=== PATIENT | male | born 1990 | race Caucasian/White ===

== ENCOUNTER 2016-12-15 16:36 | Emergency (ER) | payer SELFPAY ==
[~2016-12-15] VITALS: Ht 180.3 cm; Wt 77.4 kg
[~2016-12-15 16:36] MED LIST: ALBU1AER9 INH
[2016-12-15 16:50] VITALS: TEMP 36.7; Ht 180.3 cm; Wt 77.4 kg
[2016-12-15] MEDS ORDERED: CEFTRIAXONE SOD 350MG/ML 1 GM VIAL IM STA (17:02)
[2016-12-15] MEDS ORDERED: AZITHROMYCIN 250 MG TAB PO STA (17:02)
--- NOTE | 2016-12-15 17:03 | EMERGENCY ROOM VISIT NOTE ---
History Report prepared by Kimberlyn: Pascual Adame Under the Supervision of: Dr. Emmanuel Westfall D.O. First contact with patient: 16:53 Chief Complaint: PENILE DISCHARGE Stated Complaint: DISCHARGE FROM PENIS History of Present Illness The patient is a 26 year old male who presents to the Emergency Room with complaints of persistent penile discharge that started a few days ago. He says that a few days before the discharge started, he noticed a little irritation on the tip of his penis. 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 He says the irritation has mostly gone away, but the inside of his penis is red now. The patient says he tried Neosporin and keeping it covered, but nothing has worked to prevent the penile discharge and redness inside his penis. The patient denies any burning urination, testicle pain, nausea, vomiting , or pustules/pimples around the penis. He is currently sexually active with one partner. That partner is not having any symptoms. He has no history of sexually transmitted diseases before. He does not take any daily medications. He does not use any tobacco products and he does not drink alcohol. Source of History: patient Onset: A few days ago Position: other (penis) Quality: other (whitish/yellowish discharge) Timing: other (persistent) Associated Symptoms: No nausea, No urinary symptoms (burning urination), No vomiting Note: Associated symptoms: Inside of penis is red, bit of irritation on tip of penis. Denies testicle pain, pustules/pimples around penis. Review of Systems See HPI for pertinent positives & negatives. A total of 10 systems reviewed and were otherwise negative. Past Medical & Surgical Medical Problems: (1) No chronic problems Family History No pertinent family history Social History Smoking Status: Never Smoker Smokeless Tobacco Use: No Alcohol Use: none Marital Status: single Occupation Status: employed Current/Historical Medications Scheduled Clotrimazole Vaginal (Clotrimazole), 1 APPLN EXT BID Allergies Coded Allergies: No Known Allergies (Verified , 12/15/16) Physical Exam Vital Signs Date Time Temp Pulse Resp B/P Pulse Ox O2 Delivery O2 Flow Rate FiO2 12/15/16 16:50 36.7 63 18 115/74 98 Room Air Physical Exam GENERAL: Patient is awake, alert, and in no acute distress. Patient is resting comfortably and showing no signs of anxiety EYES: The conjunctivae are clear. The pupils are round and reactive. EARS, NOSE, MOUTH AND THROAT: The nose is without any evidence of any deformity. Mucous membranes are moist tongue is midline NECK: The neck is nontender and supple. RESPIRATORY: Normal respiratory effort is noted there is no evidence of wheezing rhonchi or rales CARDIOVASCULAR: Regular rate and rhythm noted there no murmurs rubs or gallops normal S1 normal S2 GASTROINTESTINAL: The abdomen is soft. Bowel sounds are present in all quadrants. Abdomen is nontender : No inguinal adenopathy noted. Testicles are descended and non-tender bilaterally. No lesions or ulcerations noted on penis. Thin yellow discharge noted, this was sent for culture. MUSCULOSKELETAL/EXTREMITIES: There is no evidence of gross deformity full range of motion is noted in the hips and shoulders SKIN: There is no obvious evidence of any rash. There are no petechiae, pallor or cyanosis noted. NEUROLOGIC: Patient is awake alert and oriented x3. Medical Decision & Procedures Laboratory Results Test 12/15/16 17:00 Laboratory results per my review. Medications Administered Medications (Trade) Dose Ordered Sig/Jonny Route Start Time Stop Time Status Last Admin Dose Admin Ceftriaxone Sodium (Rocephin Im) 250 mg NOW STAT IM 12/15/16 17:02 12/15/16 17:03 DC 12/15/16 17:20 250 MG Azithromycin (Zithromax Tab) 1,000 mg NOW STAT PO 12/15/16 17:02 12/15/16 17:03 DC 12/15/16 17:19 1,000 MG ED Course 1653: The patient was evaluated in room D9. A complete history and physical examination were performed. 1702: Ordered Zithromax Tab 1000 mg PO, Rocephin Im 250 mg IM. 1710: Upon reevaluation, the patient is resting comfortably. I discussed the results and treatment plan with him. He verbalized agreement of the treatment plan. He was discharged home. Medical Decision Differential diagnosis this patient could include sexually transmitted infection , nongonococcal urethritis, inflammatory arthritis, other sexually-transmitted diseases such as herpes, urinary tract infection, and other differential diagnoses were considered. Nursing notes reviewed. The patient is a 26-year-old male who presented to the emergency department for an evaluation of penile discharge. The patient's history and physical exam appeared to be consistent with urethritis. The patient did not appear to have any lesions or areas which would be consistent with a herpetic infection. He does complain of some irritation at the tip of the penis which seems to improved without any intervention. He denies at this was ulcerative in nature or what I described him as a herpetic lesion. The patient was treated with Rocephin and Zithromax in the emergency department. Urethral swab was taken. I discussed follow-up with the patient and encouraged him to avoid any sexual contact until the symptoms were completely resolved and the cultures return. He was also encouraged to try to use some antifungal cream at the tip of the penis in case this represented a fungal type infection like a balanitis. He was also encouraged follow-up with his primary care physician for further evaluation but return to the emergency department immediately if symptoms change worsen or the need arises. Impression Primary Impression: Urethritis Scribe Attestation The scribe's documentation has been prepared under my direction and personally reviewed by me in its entirety. I confirm that the note above accurately reflects all work, treatment, procedures, and medical decision making performed by me. Departure Information Dispostion Home / Self-Care Prescriptions Clotrimazole Vaginal (CLOTRIMAZOLE) 1 % Cre 1 APPLN EXT BID, #30 GM Prov: Emmanuel Westfall, DO 12/15/16 Referrals No Doctor, Assigned (PCP) Forms HOME CARE DOCUMENTATION FORM, IMPORTANT VISIT INFORMATION, WORK / SCHOOL INSTRUCTIONS Patient Instructions My [facility], Urethritis Men Additional Instructions Continue to use the cream as directed twice a day for symptomatically relief. Follow-up with your family doctor soon as possible. Call back to the emergency department in 4-5 days for culture report. Avoid any sexual contact until your completely asymptomatic and the test is negative.
[2016-12-15] MEDS ORDERED: CLOT1CRE12 EXT (17:06)
[2016-12-15 17:32] VITALS: BP 123/76; PULSE 68; O2SAT 98
[2017-07-03] MEDS ORDERED: DOXY-300 PO (17:19)
== END 2016-12-15 17:34 | disposition home or self-care (01) ==
LOC: C.EDB 16:39 → C.EDD 17:34
DX: N34.2 Other urethritis (principal)

== ENCOUNTER 2016-12-27 22:33 | Emergency (ER) | payer SELFPAY ==
[~2016-12-27] VITALS: Ht 180.3 cm; Wt 75.0 kg
[~2016-12-27 22:33] MED LIST changes: -ALBU1AER9 INH; +CLOT1CRE12 EXT
[2016-12-27 22:41] VITALS: TEMP 36.8; Ht 180.3 cm; Wt 75.0 kg
[2016-12-27] MEDS ORDERED: CLOT1CRE3 TOP (22:54)
--- NOTE | 2016-12-27 23:04 | EMERGENCY ROOM VISIT NOTE ---
History Report prepared by Kimberlyn: Mike Tapia Under the Supervision of: Dr. Casper Sanchez M.D. First contact with patient: 22:46 Chief Complaint: INFECTION Stated Complaint: YEAST INFECTION Nursing Triage Summary: reports yeast infection 2 weeks ago to penis. "it went away and is back. it's not an STD because I haven't done that in a few weeks either.". pt report work place was very warm and AC was out recently. "I was really sweaty". pt reports some discomfort at times. denies burning with urination History of Present Illness The patient is a 26 year old male who presents to the Emergency Room with complaints of a recurrent yeast infection on his penis. The patient was in the ED two weeks ago with redness and swelling of the penis. He also had penile discharge. He was discharged with antibiotics and anti-fungal cream. The patient 's symptoms initially resolved and were not present for one week. Two days ago the redness and swelling returned. He continued using the anti-fungal cream. He is not having any new penile discharge. He has also noticed a "warm" sensation when he urinates but denies burning. He denies back or abdominal pain. He denies testicular involvement. The patient is circumcised. He denies penile trauma. He is sexually active and his partner is asymptomatic. The patient denies any history of STDs. The patient wears boxer briefs. He works as a cook. He denies any other medical problems. Source of History: patient Onset: two days Position: other (penis) Quality: other (yeast infection) Timing: other (recurrent) Associated Symptoms: + urinary symptoms, No abdominal pain, No back pain Review of Systems See HPI for pertinent positives & negatives. A total of 10 systems reviewed and were otherwise negative. Past Medical & Surgical Medical Problems: (1) No chronic problems Old medical records were reviewed. Nurse's notes were reviewed and I agree with. Family History No pertinent family history Social History Smoking Status: Never Smoker Alcohol Use: none Marital Status: single Occupation Status: employed Current/Historical Medications Scheduled PRN Clotrimazole Vaginal (Clotrimazole), 1 APPLN TOP BID PRN for Yeast Infection Allergies Coded Allergies: No Known Allergies (Verified , 12/15/16) Physical Exam Vital Signs Date Time Temp Pulse Resp B/P Pulse Ox O2 Delivery O2 Flow Rate FiO2 12/27/16 23:53 76 18 114/70 100 Room Air 12/27/16 22:41 36.8 73 18 117/71 99 Room Air Physical Exam General: Non ill appearing young male in no acute distress, breathing comfortably on room air. Normal speech HEENT: Normal cephalic atraumatic. Pupils are equal round and reactive to light. Extraocular movements are intact. Oropharynx is pink with moist mucous membranes. No swelling of the mouth lips or tongue. Neck: Supple with a midline trachea. No meningeal signs or stiffness, no JVD or bruits. No Stridor. Chest: Clear to auscultation bilaterally. No wheezes or rhonchi. No increased work of breathing. Heart: regular rate and rhythm. Abdomen: Soft nontender, nondistended without rebound guarding or rigidity. Extremities: No cyanosis clubbing or edema. No calf tenderness or assymetry Spine/Back. Non tender to palpation. No CVA tenderness Skin: Good turgor without rashes. Neurologic exam: Cranial nerves two through 12 are intact. Motor and sensation are intact and symmetrical throughout. Genitourinary: No lymphadenopathy. Normal testicular exam. No penile discharge. Small red areas near the tip of the penis likely consistent with yeast, no defined legions or pustules. Medical Decision & Procedures Medications Administered Medications (Trade) Dose Ordered Sig/Jonny Route Start Time Stop Time Status Last Admin Dose Admin Azithromycin (Zithromax Tab) 1,000 mg NOW ONCE PO 12/27/16 23:45 12/27/16 23:46 DC 12/27/16 23:53 1,000 MG Ceftriaxone Sodium (Rocephin Im) 250 mg NOW STAT IM 12/27/16 23:32 12/27/16 23:36 DC 12/27/16 23:53 250 MG ED Course 2252: Past medical records reviewed. The patient was evaluated in room B6, and a complete history and physical examination were performed. 2315: Penile swab performed. 2330: Reassessed the patient. Discussed the findings with him. He verbalized understanding and agreement. The patient is ready for discharge. 2332: Rocephin 250 mg IM. 2345: Zithromax 1000 mg PO. Medical Decision Differential diagnosis includes balanitis, urethritis, trauma, cellulitis. This patient comes in as described above. He has pain on his penis. He has some small red areas. He may have some pain with urination as well. He is treated several weeks ago for urethritis. I have reviewed his workup and his GC and chlamydia probes had failed and all were unable be reported light elicited repeated. He has asked for another dose of antibiotics. I did give him additional IV Rocephin and azithromycin. He is continue the antifungal cream. At this point I do not see any penile discharge, he does have some small red areas which is most likely yeast. He has no discrete lesions or pustules to suggest herpetic lesion. I recommended follow-up with his regular doctor return if any new problems or concerns. Impression Primary Impression: Urethritis Additional Impression: Balanitis Scribe Attestation The scribe's documentation has been prepared under my direction and personally reviewed by me in its entirety. I confirm that the note above accurately reflects all work, treatment, procedures, and medical decision making performed by me. Departure Information Dispostion Home / Self-Care Referrals No Doctor, Assigned (PCP) Forms HOME CARE DOCUMENTATION FORM, IMPORTANT VISIT INFORMATION, WORK / SCHOOL INSTRUCTIONS Patient Instructions My [facility] Additional Instructions Rest. Continue to use your clotrimazole cream twice a day Return if: Worsening of symptoms, fever or chills, any new problems or concerns. Follow-up with your doctor this week for recheck. Problem Qualifiers
[2016-12-27] MEDS ORDERED: CEFTRIAXONE SOD 350MG/ML 1 GM VIAL IM STA (23:32)
[2016-12-27] MEDS ORDERED: AZITHROMYCIN 250 MG TAB PO ONE (23:45)
[2016-12-27 23:53] VITALS: BP 114/70; PULSE 76; O2SAT 100
[2017-07-03] MEDS ORDERED: DOXY-300 PO (17:19)
== END 2016-12-27 23:55 | disposition home or self-care (01) ==
LOC: C.EDB 22:34
DX: N34.2 Other urethritis (principal); N48.1 Balanitis

== ENCOUNTER 2017-06-30 22:03 | Emergency (ER) | payer SELFPAY ==
[~2017-06-30] VITALS: Ht 180.3 cm; Wt 76.1 kg
[~2017-06-30 22:03] MED LIST changes: -CLOT1CRE12 EXT; +CLOT1CRE3 TOP
[2017-06-30 22:09] VITALS: TEMP 37.2; Ht 180.3 cm; Wt 76.1 kg
[2017-06-30] MEDS ORDERED: CEFTRIAXONE SOD 350MG/ML 1 GM VIAL IM STA (22:23)
[2017-06-30] MEDS ORDERED: AZITHROMYCIN 250 MG TAB PO STA (22:23)
[2017-06-30 22:50] LABS: URINE APPEARANCE CLEAR (CLEAR); URINE BILIRUBIN NEG (NEG); URINE COLOR YELLOW; URINE NITRITE NEG (NEG); URINE SPECIFIC GRAVITY 1.023 (1.000-1.030); UROBILINOGEN NEG (NEG); ZZUR CULT IF INDIC CLEAN CATCH NO
[2017-06-30 22:56] LABS: MANUAL MICROSCOPIC REQUIRED? NO; REVIEW REQ? NO
[2017-06-30 23:22] VITALS: BP 112/62; PULSE 69; O2SAT 100
--- NOTE | 2017-07-01 03:41 | EMERGENCY ROOM VISIT NOTE ---
History First contact with patient: 22:12 Chief Complaint: PENIS PAIN Stated Complaint: YEAST INFECTION IN GROIN History of Present Illness The patient is a 27 year old male who presents to the Emergency Room with complaints of penile redness and discomfort for the past few days. Patient has a history of urethritis. Symptoms feel similar. He has not seen urology before. He does not feel at risk for STIs. Patient denies penile discharge, penile rashes, testicular pain, urinary frequency, urgency, dysuria, abdominal pain, fever, chills, chest pain, dyspnea or any other medical complaints. Hes been using his clotrimazole cream with minimal improvement of symptoms. He states he sweats a lot at work. He states the antibiotics from last time seemed to clear everything up. Review of Systems See HPI for pertinent positives & negatives. A total of 10 systems reviewed and were otherwise negative. Past Medical/Surgical History Medical Problems: (1) No chronic problems Family History No pertinent family history Social History Smoking Status: Never Smoker Alcohol Use: none Drug Use: none Marital Status: single Occupation Status: employed Current/Historical Medications Scheduled PRN Clotrimazole Vaginal (Clotrimazole), 1 APPLN TOP BID PRN for Yeast Infection Physical Exam Vital Signs Date Time Temp Pulse Resp B/P (MAP) Pulse Ox O2 Delivery O2 Flow Rate FiO2 06/30/17 23:22 69 18 112/62 100 06/30/17 22:09 37.2 80 18 126/69 99 Room Air Physical Exam VITALS: Vitals are noted on the nurse's note and reviewed by myself. Vital signs stable. GENERAL: Pleasant male, in no acute distress, nondiaphoretic, well-developed well-nourished. SKIN: Capillary reflex less than 2 seconds. HEENT: Normocephalic. PERRLA. EOMI. Nares patent. Mucous membranes moist. Neck is supple without nuchal rigidity. HEART: Regular rate and rhythm without murmurs gallops or rubs. LUNGS: Clear to auscultation bilaterally without wheezes, rales or rhonchi. No retractions or accessory muscle use. ABDOMEN: Positive bowel sounds x 4. Normal tympanic percussion. Soft, nontender, without masses or organomegaly. Juarez sign negative. No guarding or rebound tenderness. exam: Normal male genitalia, no penile rashes or discharge, No testicular pain no penile pain. circumcised, cultures taken and sent. Quality Inspector present. MUSCULOSKELETAL: No gross musculoskeletal defects. No pedal edema. No calf tenderness. NEURO: Patient was alert and oriented to person place and time. Normal sensation to light and sharp touch. No focal neurological deficits. Medical Decision & Procedures Laboratory Results Test 06/30/17 22:20 06/30/17 22:40 Urine Color YELLOW Urine Appearance CLEAR (CLEAR) Urine pH 6.0 (4.5-7.5) Urine Specific [place] 1.023 (1.000-1.030) Urine Protein NEG (NEG) Urine Glucose (UA) NEG (NEG) Urine Ketones NEG (NEG) Urine Occult Blood NEG (NEG) Urine Nitrite NEG (NEG) Urine Bilirubin NEG (NEG) Urine Urobilinogen NEG (NEG) Urine Leukocyte Esterase NEG (NEG) Medications Administered Medications (Trade) Dose Ordered Sig/Jonny Route Start Time Stop Time Status Last Admin Dose Admin Ceftriaxone Sodium (Rocephin Im) 250 mg NOW STAT IM 06/30/17 22:23 06/30/17 22:24 DC 06/30/17 22:37 250 MG Azithromycin (Zithromax Tab) 1,000 mg NOW STAT PO 06/30/17 22:23 06/30/17 22:24 DC 06/30/17 22:37 1,000 MG ED Course Prior records reviewed and summarized as above. Triage Nursing notes reviewed. The patient's history was concerning for penile redness and discomfort. Differential diagnosis: Etiologies such as balanitis, STI, UTI, cellulitis, urethritis as well as others were entertained.. Physical examination: The physical examination was consistent with urethritis ER treatment provided: Rocephin, Zithromax On reassessment the patient felt better. Diagnostics interpreted by me: The labs revealed negative urine, GC chlamydia pending This appears to be isolated urethritis. Patient was advised continue the clotrimazole cream..He was advised to follow-up urology as he this is a recurrent issue for him. He was advised to avoid excessive sweating to the area. He was advised to return to the ER immediately for penile pain, penile discharge, fevers, vomiting, worsening signs or symptoms or as needed. Patient no urinary tract infection. He is well-appearing. Patient states he has plenty of clotrimazole cream. By the evaluation outlined above emergent etiologies such as UTI, as well as others were deemed relatively unlikely. The pt informed about the findings as listed above. All questions were answered and pleased with the treatment. Return instructions were outlined and the patient was discharged in stable condition. Referral: The patient was referred back to urology and primary care physician for follow- up in 2 to 3 days for a recheck of the current condition. Case reviewed with my attending Medical Decision As above Medication Reconcilliation Current Medication List: was personally reviewed by me Blood Pressure Screening Patient's blood pressure: Normal blood pressure Impression Primary Impression: Urethritis Departure Information Dispostion Home / Self-Care Condition GOOD Referrals Gordy Baker MD Forms WORK / SCHOOL INSTRUCTIONS, HOME CARE DOCUMENTATION FORM, IMPORTANT VISIT INFORMATION Patient Instructions My [facility] Additional Instructions Continue clotrimazole cream twice a day to the affected area. Ibuprofen(Motrin, Advil) may be used for fever or pain. Use 600mg every six hours as needed. Take with food. Avoid using more than 2400mg in a 24 hour period. Do not use 2400mg per day for more than three consecutive days without physician direction. Prolonged inappropriate use can lead to stomach upset or ulcers. (AND/OR) Acetaminophen(Tylenol) may be used for fever or pain. Use 1000mg every six hours as needed. Avoid using more than 3000mg in a 24 hour period. Rest and drink plenty of fluids as tolerated. Continue current medications. Avoid strenuous activities and anything that worsens your pain. Resume normal activities once your symptoms resolve. Return to the ER immediately for worsening or persistent penile pain, penile discharge, abdominal pain, vomiting, fevers, chest pains, difficulty breathing, worsening of your condition, or as needed. Follow up with urology in 2-3 days for a recheck of your current condition.
[2017-07-03 02:22] LABS: CHLAMYDIA TRACH RNA*** NOT DETECTED (NOT DETECTED); GC (NEIS GONORRHOEAE)RNA** NOT DETECTED (NOT DETECTED)
[2017-07-03] MEDS ORDERED: DOXY-300 PO (17:19)
== END 2017-06-30 23:19 | disposition home or self-care (01) ==
LOC: C.EDB 22:04
DX: N34.2 Other urethritis (principal); N48.89 Other specified disorders of penis

== ENCOUNTER 2018-01-06 10:25 | Emergency (ER) | payer SELFPAY ==
[~2018-01-06] VITALS: Ht 182.9 cm; Wt 76.9 kg
[~2018-01-06 10:25] MED LIST changes: +DOXY-300 PO
[2018-01-06 10:44] VITALS: TEMP 36.7; Ht 182.9 cm; Wt 76.9 kg
--- NOTE | 2018-01-06 11:05 | EMERGENCY ROOM VISIT NOTE ---
History First contact with patient: 10:48 Chief Complaint: THROAT PAIN/INJURY Stated Complaint: SORE THROAT History of Present Illness The patient is a 27 year old male who presents to the Emergency Room via private vehicle with complaints of "sore throat". The patient states that beginning in the first part of December he started with a tickle in his throat that progressed to a sore throat. It has been intermittent since that time and is favoring the left side. It is worse in the morning. Feels like an ulcer in his throat. He is drinking liquids fine but notes that foods will sometimes feels that they catch on this region. He states that yesterday was the worst sore throat. He notes minimal swelling. He denies any fevers, chills, chest pain or shortness of breath. He rates the overall discomfort as a 7/10. Review of Systems A complete 6-point Review of Systems was discussed with the patient, with pertinent positives and negatives listed in the History of Present Illness. All remaining Review of Systems questions can be considered negative unless otherwise specified. Past Medical/Surgical History Medical Problems: (1) No chronic problems Family History No pertinent family history Social History Smoking Status: Never Smoker Alcohol Use: none Drug Use: none Marital Status: single Occupation Status: employed Current/Historical Medications No Active Prescriptions or Reported Meds Physical Exam Vital Signs Date Time Temp Pulse Resp B/P (MAP) Pulse Ox O2 Delivery O2 Flow Rate FiO2 01/06/18 11:44 80 19 105/73 98 Room Air 01/06/18 10:45 95 Room Air 01/06/18 10:44 36.7 93 18 100/68 95 Room Air Physical Exam VITAL SIGNS - Vital signs and nursing notes were reviewed. Stable. GENERAL -27-year-old male appearing his stated age who is in no acute distress. Communicates well with provider and answers questions appropriately. SKIN - Without rashes. No meningeal or petechial rash. HEAD - NC/AT. EYES - PERRL with EOMI bilaterally. Sclera anicteric. EARS - No deformities of external structures noted on gross examination bilaterally. External auditory canals without discharge or otorrhea. Tympanic membranes pearly tomas without retraction or bulging. No fluid or purulent material visualized behind the TM. Handle of malleus, umbo, cone of light, pars tensa/flaccid all easily visualized. NOSE - Midline and without cyanosis. No epistaxis or purulent drainage noted. MOUTH/OROPHARYNX - Without perioral cyanosis. Buccal mucosa pink and moist and without leukoplakia. Tongue midline with equal elevation of palate bilaterally. No tonsillar hypertrophy, erythema, or exudates noted. Fair dentition noted. NECK - Neck with FROM. Supple to palpation. No lymphadenopathy noted. No nuchal rigidity. Medical Decision & Procedures Medical Decision Patient was seen and evaluated as above in room D4. Review was performed of nursing notes and vital signs. He presents to us today with sore throat. After obtaining a thorough history and physical examination the above work up was performed. It is worse in the morning. He has seasonal allergies. He notes he sleeps on his left side. I believe he is likely experiencing postnasal drip that is causing a sore throat. Yesterday there was a large change in the seasonal weather noting lots of pollen and such. It is favored that the left side subjective complaint and no evidence of this being objective is all from irritation postnasal drip. It is also worse in the morning. He takes Claritin at baseline. I would recommend he adds Benadryl at night or before exposure to seasonal allergens as well as Flonase during the season. He is to follow with the family doctor or return with worsening. He did have a rapid strep swab here of which was negative. Culture pending. The patient was educated upon management, had questions answered prior to discharge, and was discharged home in good condition. In the evaluation and treatment of this patient the following differential diagnoses were entertained: Strep pharyngitis, viral pharyngitis, irritation from seasonal allergies causing postnasal drip, among others. Impression Primary Impression: Sore throat Departure Information Dispostion Home / Self-Care Condition GOOD Prescriptions No Active Prescriptions or Reported Meds Referrals No Doctor, Assigned (PCP) Gordy Escobar M.D. Patient Instructions My [facility] Additional Instructions You were seen in the emergency department for your sore throat. The results of your rapid strep screen were found to be negative. You will be contacted in 48- 72 hrs if the results of your culture are found to be positive and any change in antibiotics is necessary. I recommend the 3 [id number] medications: - Claritin (loratadine) 10mg daily - Flonase 2 sprays into each daily during season of symptoms (not year round) - Benadryl 25mg at night or before going out to fresh mowed grass/other triggers. For pain and fever control, you can use the following [id number] medicines : - Regular strength (325mg/tab) Tylenol (acetaminophen) 2 tabs every 4-6 hours as needed. Do not exceed 12 tablets in a 24 hour period. Avoid taking more than 3 grams (3000 mg) of Tylenol per day. This includes any other sources of acetaminophen you may take on a regular basis. - Regular strength (200 mg/tab) Advil (ibuprofen) 1-2 tabs every 4-6 hours as needed. Do not exceed a dose of 3200 mg per day. - For best results, alternate dosing of Tylenol and Advil. In addition to your prescribed medications, you can also use the following home remedies: - Warm salt-water gargles 3 times per day can soothe your throat and help to fight infection. - Warm tea with honey can soothe your throat. Return to the emergency department if your symptoms persist or worsen over the next 2-3 days despite treatment course outlined above. Return to the emergency department if you develop the following symptoms of: inability to swallow solids , liquids, or drool; excessive wheezing or inability to catch your breath; or intractable fever or pain. Follow up with your primary care provider in 2-3 days from today's emergency department visit. It is also reasonable to follow-up with ear nose and throat if this persists. Doctor listed above. This is Dr. Escobar.
[2018-01-06 11:44] VITALS: BP 105/73; PULSE 80; O2SAT 98
== END 2018-01-06 11:45 | disposition home or self-care (01) ==
LOC: C.EDB 10:28 → C.EDD 11:45
DX: J02.9 Acute pharyngitis, unspecified (principal)